=== PATIENT | female | born 2000 | race Caucasian/White ===

== ENCOUNTER → 2023-02-05 | Outpatient (CLI) | payer BC ==
[2023-02-05 15:35] LABS: BASOPHILS # (AUTO) 0.1 10^3/uL (0.0-0.1); BASOPHILS % (AUTO) 1 % (0-10); EOSINOPHILS # (AUTO) 0.2 10^3/uL (0.0-0.3); EOSINOPHILS % (AUTO) 3 % (0-10); HEMATOCRIT 41 % (35-52); HEMOGLOBIN 13.5 g/dL (11.5-16.0); LYMPHOCYTES # (AUTO) 1.2 10^3/uL (1.0-4.0); LYMPHOCYTES % (AUTO) 23 % (12-44); MEAN CORPUSCULAR HEMOGLOBIN 31 pg (25-34); MEAN CORPUSCULAR HGB CONC 33 g/dL (32-36); MEAN CORPUSCULAR VOLUME 94 fL (80-99); MONOCYTES # (AUTO) 0.6 10^3/uL (0.0-1.0); MONOCYTES % (AUTO) 11 % (0-12); NEUTROPHILS # (AUTO) 3.2 10^3/uL (1.8-7.8); NEUTROPHILS % (AUTO) 61 % (42-75); PLATELET COUNT 326 10^3/uL (130-400); WHITE BLOOD COUNT 5.3 10^3/uL (4.3-11.0)
[2023-02-05 15:45] LABS: POTASSIUM 3.6 MMOL/L (3.6-5.0)
[2023-02-05 15:47] LABS: CALCIUM 9.5 MG/DL (8.5-10.1)
[2023-02-05 15:51] LABS: CREATININE SERUM 0.87 MG/DL (0.60-1.30)
== END ==
LOC: LAB 15:20
DX: N13.5 Crossing vessel and stricture of ureter without hydronephrosis (principal)
CPT/HCPCS: 36415; 80048; 85025; 87088

== ENCOUNTER → 2023-02-18 | Outpatient (CLI) | payer BC ==
[~2023-02-18] MED LIST: HOLD METFORMIN - RECEIVED CONTRAST 20 ML VIAL IV SCH; IOHEXOL 350 MG/ML 100 ML (OMNIPAQUE 350) VIAL IV ONE; NS 100 ML (IVPB) BAG IV ONE
--- NOTE | 2023-02-18 14:43 | Diagnostic Imaging Report ---
PROCEDURE: CT abdomen and pelvis with and without contrast. TECHNIQUE: Precontrast acquisitions were acquired through the abdomen and pelvis. Multiple contiguous axial images were obtained through the abdomen and pelvis after the administration of intravenous contrast. Auto Exposure Controls were utilized during the CT exam to meet ALARA standards for radiation dose reduction. INDICATION: Left UPJ obstruction. COMPARISON: No prior studies are available for comparison. FINDINGS: The lung bases are clear. The liver and gallbladder are unremarkable. The pancreas and spleen are unremarkable. No adrenal mass is detected. No renal calculi are identified. Patient does have a left-sided double-J nephroureteral stent extending from the left renal pelvis into the bladder. No definite calculus along the course of the stent is identified. There does appear to be excretion of contrast into both renal collecting systems and ureters, without evidence of obstruction or hydronephrosis. Bladder is unremarkable. Aorta is nonaneurysmal. There is some moderate gaseous distention to the stomach. The small and large bowel loops are normal caliber. There is no obstruction. There is no ascites. Uterus and ovaries are unremarkable. IMPRESSION: Left-sided double-J nephroureteral stent. No calculus along the course of the stent is identified. There is no evidence of hydronephrosis. Dictated by: Dictated on workstation # [id number]
== END ==
LOC: RAD 12:56
DX: N13.5 Crossing vessel and stricture of ureter without hydronephrosis (principal)
CPT/HCPCS: 74178